=== PATIENT | male | born 1970 | race Caucasian/White ===

== ENCOUNTER 2019-06-08 10:46 | Emergency (ER) | payer OTHER ==
[~2019-06-08] VITALS: Ht 170.2 cm; Wt 95.3 kg
[2019-06-08] MEDS ORDERED: LISINOPRIL20 MG PO (11:42)
[2019-06-08] MEDS ORDERED: ACCUNEB SO1.25 MG/1 INH (11:43)
[2019-06-08] MEDS ORDERED: HYDROCHLOROTH12.5 M1 PO (11:43)
[2019-06-08] MEDS ORDERED: SPIRIVA INH (11:43)
[2019-06-08 11:57] LABS: ABSOLUTE NEUTROPHILS 5.1 thou/uL (1.4-8.2); BASOPHILS 0.8 % (0.0-2.0); EOSINOPHILS 3.6 % (0.0-3.0); HEMATOCRIT 45.1 % (42.0-52.0); LYMPHOCYTES 19.1 % (24.0-44.0); MCH 28.1 pg (26.0-34.0); MCHC 33.3 g/dL (28.0-37.0); MCV 84.5 fL (80.0-100.0); MONOCYTES 5.9 % (1.0-8.0); POLYS 70.6 % (36.0-66.0); RBC 5.33 mil/uL (4.50-6.00); RDW 13.8 % (10.5-14.5); WBC 7.2 thou/uL (4.0-11.0)
[2019-06-08 12:43] LABS: ANION GAP 7 mmol/L (7-16); BUN 19 mg/dL (7-18); CALCIUM 9.4 mg/dL (8.5-10.1); CHLORIDE 104 mmol/L (98-107); CO2 27 mmol/L (21-32); GLUCOSE 108 mg/dL (74-106); POTASSIUM 4.4 mmol/L (3.5-5.1); SODIUM 138 mmol/L (136-145)
[2019-06-08 12:52] LABS: ALBUMIN 4.1 g/dL (3.4-5.0); SGOT 12 U/L (15-37); SGPT 18 U/L (30-65); TOTAL BILIRUBIN 0.4 mg/dL (<0.1-1.0); TOTAL PROTEIN 7.3 g/dL (6.4-8.2); TROPONIN-I <0.06 ng/mL (<0.06)
[2019-06-08 13:02] LABS: PLATELET COUNT 178 thou/uL (150-400)
[2019-06-08] MEDS ORDERED: PROMETH-CODEIN 65 ML PO (14:17)
[2019-06-08] MEDS ORDERED: VIBRAMYCIN 100100 M2 PO (14:17)
[2019-06-08] MEDS ORDERED: PREDNISONE 20 M20 MG PO (14:17)
[2019-06-08 14:39] VITALS: BP 113/94
--- NOTE | 2019-06-09 08:06 | EKG ---
[place] [address] [facility] [place] [address] ELECTROCARDIOGRAM REPORT Name: RICH VORA Room #: DEP [facility] [id number] ������������������ Admission: 06/08/19 ������������������ Attend Phys: Discharge: 06/08/19 ������������������ Date of : 68 Report #: [id number] ����������������������������������������������������������������� [id number] THIS REPORT FOR: //name// [facility] ED Test Date: 2019-06-08 Test Time: 10:51:20 Pat Name: RICH VORA Department: Room: Gender: M It Applications Developer: EDGAR : 1970 Requested By: Nita Merino Order Number: [id number] MD: Valentin Blancas Measurements Intervals [place] Rate: 87 P: 46 NC: 162 QRS: 48 QRSD: 90 T: 11 QT: 349 QTc: 420 Interpretive Statements Sinus rhythm Abnormal R-wave progression, late transition No previous ECG available for comparison Electronically Signed On 06-09-2019 8:06:05 CDT by Valentin Blancas [email or web address] ��������������������������������������������� <ELECTRONICALLY SIGNED> ���������������������������������������� By: Valentin Blancas MD, [facility] ��������������������������������������������� 06/09/19 [id number] Valentin Blancas MD, FACC /EPI
== END 2019-06-08 14:39 | disposition home or self-care (01) ==
LOC: ER 10:46
PROVIDERS: Physician Assistant
DX: J18.9 Pneumonia, unspecified organism (principal); I10 Essential (primary) hypertension; Z72.0 Tobacco use; Z79.899 Other long term (current) drug therapy; Z88.8 Allergy status to other drugs, medicaments and biological substances